=== PATIENT | male | born 1965 | race Caucasian/White ===

== ENCOUNTER 2018-11-23 06:18 | Emergency (ER) | payer BC, OTHER ==
[2018-11-23 06:18] VITALS: O2SAT 97
[2018-11-23] MEDS ORDERED: HYDRALAZINE HYDROCHLORIDE 10 MG TAB PO ONE (06:27)
[2018-11-23] MEDS ORDERED: HYDRALAZINE HYDROCHLORIDE 10 MG TAB ONE (06:29)
[2018-11-23 06:33] VITALS: PULSE 89; RESP 22; TEMP 96.5
[2018-11-23] MEDS ORDERED: HYDRALAZINE HYDROCHLORIDE 20 MG/ML SOL IV ONE (06:39)
[2018-11-23] MEDS ORDERED: HYDRALAZINE HYDROCHLORIDE 20 MG/ML SOL ONE (06:51)
[2018-11-23] MEDS ORDERED: SODIUM CHLORIDE 0.9% FLUSH 10 ML SOL IV PRN (06:53)
[2018-11-23 07:32] VITALS: BP 164/108
== END 2018-11-23 07:55 | disposition home or self-care (01) ==
LOC: ED 06:18
DX: R04.0 Epistaxis (principal); I10 Essential (primary) hypertension
CPT/HCPCS: 96374; 99282; 99284; J0360; A6402; A9270-GY